=== PATIENT | female | born 1995 | race African-American/Black ===

== ENCOUNTER 2019-09-22 19:42 | Emergency (ER) | payer SELFPAY ==
[~2019-09-22] VITALS: Ht 165.1 cm; Wt 57.0 kg
[2019-09-22 21:16] VITALS: BP 137/75
== END 2019-09-22 23:22 | disposition left against medical advice (07) ==
LOC: ER 19:42
DX: Z53.21 Procedure and treatment not carried out due to patient leaving prior to being seen by health care provider (principal)
CPT/HCPCS: 81025